=== PATIENT | male | born 1995 | race American Indian/Alaskan Native ===

== ENCOUNTER 2017-02-08 22:07 | Emergency (ER) | payer SELFPAY ==
[2017-02-08 22:28] VITALS: BP 136/78
[2017-02-08] MEDS ORDERED: TYLENOL PO ONE (22:44)
[2017-02-08] MEDS ORDERED: TYLENOL ONE (22:44)
--- NOTE | 2017-02-09 02:09 | XRay Report ---
FINAL REPORT EXAM: XR HAND 3+V RT HISTORY: pt punched window open wd deformed rt middle finger TECHNIQUE: Three views of the right hand PRIORS: None. FINDINGS: There is no evidence of acute fracture. There is there is dorsal soft tissue swelling centered at the proximal interphalangeal joint of the 3rd finger. There is several small punctate opacities within the swollen soft tissue if which are consistent with glass fragments or debris. The bones are normally aligned and mineralized. The joint spaces are well-preserved. IMPRESSION: No evidence of acute fracture or subluxation. Dorsal soft tissue swelling centered at the 3rd proximal interphalangeal joint. Several small punctate opacities within the swollen soft tissue are consistent with glass fragments or debris.
[2017-02-09] MEDS ORDERED: XYLOCAINE 1% MPF 5 mL INFILTRATI ONE (02:40)
[2017-02-09] MEDS ORDERED: MOTRIN PO ONE (02:40)
[2017-02-09] MEDS ORDERED: NORCO 7.5/325 PO ONE (02:40)
[2017-02-09] MEDS ORDERED: FLEXERIL PO ONE (02:40)
[2017-02-09] MEDS ORDERED: BOOSTRIX IM ONE (03:05)
[2017-02-09] MEDS ORDERED: NACL 0.9% IR ONE (03:14)
--- NOTE | 2017-02-09 04:34 | Emergency Department Report ---
ED Laceration HPI - HPI Chief Complaint: Extremity Injury, Upper Stated Complaint: RT HAND LAC Severity: mild Tetanus Status: Not up to Date Laceration Symptoms: Yes Pain, No Foreign Body Sensation, No Numbness, No Weakness Other History: 21 year old male presents to ED with middle finger laceration at 11pm last night. patient is unsure of tetanus shot. patient is stable, neurologically intact and in no acute distress. ED Review of Systems ROS: Stated complaint: LT HAND LAC Other details as noted in HPI Constitutional: denies: chills, fever Eyes: denies: eye pain, eye discharge, vision change ENT: denies: ear pain, throat pain Respiratory: denies: cough, shortness of breath, wheezing Cardiovascular: denies: chest pain, palpitations Endocrine: no symptoms reported Gastrointestinal: denies: abdominal pain, nausea, diarrhea Genitourinary: denies: urgency, dysuria Musculoskeletal: denies: back pain, joint swelling, arthralgia Skin: other (right middle finger laceration). denies: rash, lesions Neurological: denies: headache, weakness, paresthesias Psychiatric: denies: anxiety, depression Hematological/Lymphatic: denies: easy bleeding, easy bruising ED Past Medical Hx - Past Medical History Previous Medical History?: No - Surgical History Past Surgical History?: No - Social History Smoking Status: Former Smoker Substance Use Type: None - Medications Home Medications: Home Medications Medication Instructions Recorded Confirmed Last Taken Type Cephalexin [Keflex] 500 mg PO Q12HR #10 cap 02/09/17 Unknown Rx Cyclobenzaprine [Flexeril] 10 mg PO BID PRN #10 tablet 02/09/17 Unknown Rx Meloxicam [Mobic] 7.5 mg PO QDAY #5 tablet 02/09/17 Unknown Rx Laceration Physical Exam - Exam General: Vital signs noted. No distress. Alert and acting appropriately. Wound Length (cm): 4 Laceration Location: Upper Extremity (right middle finger laceration approx 4cm in size) Laceration Exam: Yes Normal Distal CMS, No Foreign Body, No Exposed Tendon, Vessel, or Nerve, No Tendon Injury (patient has full ROM of right hand/fingers) ED Course Vital Signs 02/08/17 02/08/17 22:22 22:46 Temperature 97.8 F Pulse Rate 78 Respiratory 18 18 Rate Blood Pressure 136/78 O2 Sat by Pulse 98 Oximetry - Laceration /Wound Repair Right Proximal Dorsal Finger Wound Location: upper extremity (right middle finger proximal joint laceration) Wound Length (cm): 4 Wound's Depth, Shape: superficial, irregular Wound Explored: contaminated Irrigated w/ Saline (ccs): 500 Betadine Prep?: Yes Anesthesia: 1% Lidocaine Volume Anesthetic (ccs): 5 Wound Debrided: extensive Wound Repaired With: sutures Suture Size/Type: 5:0, proline Number of Sutures: 8 Layer Closure?: No Sterile Dressing Applied?: Yes Progress: patient tolerated procedure well. bleeding well controlled. ED Medical Decision Making - Radiology Data Radiology results: report reviewed XR right hand - Medical Decision Making 21 year old male presents to ED with right middle finger laceration after punching glass. patient has recieved tetanus shot during ED visit and tolerated procedure well. patient is stable, neurologically intact and in no acute distress. Critical care attestation.: If time is entered above; I have spent that time in minutes in the direct care of this critically ill patient, excluding procedure time. ED Disposition Clinical Impression: Laceration of finger of right hand Qualifiers: Encounter type: initial encounter Finger: middle finger Damage to nail status: without damage Foreign body presence: without foreign body Qualified Code(s): S61.212A - Laceration without foreign body of right middle finger without damage to nail, initial encounter Disposition: DC-01 TO HOME OR SELFCARE Is pt being admited?: No Does the pt Need Aspirin: No Condition: Stable Instructions: Suture Care (ED) Additional Instructions: please return to ED within 10-12 days for suture removal. keep sutures dry, wash lightly with warm water and antibacterial soap. please return to ED immediately if swelling worsens. Prescriptions: Cephalexin [Keflex] 500 mg PO Q12HR #10 cap Cyclobenzaprine [Flexeril] 10 mg PO BID PRN #10 tablet PRN Reason: Muscle Spasm Meloxicam [Mobic] 7.5 mg PO QDAY #5 tablet Referrals: PRIMARY CARE, [Primary Care Provider] - 3-5 Days
[2017-02-09] MEDS ORDERED: TRIPLE ANTIBIOTIC TP ONE (05:03)
== END 2017-02-09 05:30 | disposition home or self-care (01) ==
LOC: ED 22:07
DX: S61.212A Laceration without foreign body of right middle finger without damage to nail, initial encounter (principal); Z87.891 Personal history of nicotine dependence; X58.XXXA Exposure to other specified factors, initial encounter; Y93.89 Activity, other specified; Y99.8 Other external cause status; Y92.89 Other specified places as the place of occurrence of the external cause
CPT/HCPCS: 90471; 90715; A6250